=== PATIENT | male | born 1955 | race Asian ===

== ENCOUNTER → 2017-01-01 | Outpatient (CLI) | payer OTHER ==
[~2017-01-01] VITALS: Ht 170.2 cm; Wt 75.7 kg
[~2017-01-01] MED LIST: ASPIRIN EC325 MG PO; ATENOLOL50 MG PO; ATORVASTATIN CA40 MG PO; CLOPIDOGREL75 MG PO; LOFIBRA54 MG PO; LOVASTATIN40 MG PO; NITROGLYCERIN0.4 MG SL; NITROSTAT0.4 MG SL; NORVASC10 MG PO; PROTONIX40 MG PO
== END | disposition home or self-care (01) ==
LOC: AMB 12:56
DX: Z12.11 Encounter for screening for malignant neoplasm of colon (principal); D12.2 Benign neoplasm of ascending colon; D12.5 Benign neoplasm of sigmoid colon; D12.3 Benign neoplasm of transverse colon; K62.1 Rectal polyp; I10 Essential (primary) hypertension; I25.10 Atherosclerotic heart disease of native coronary artery without angina pectoris; E78.2 Mixed hyperlipidemia; G47.33 Obstructive sleep apnea (adult) (pediatric); Z98.61 Coronary angioplasty status; Z79.01 Long term (current) use of anticoagulants
CPT/HCPCS: 88305; 93005; J2250